=== PATIENT | female | born 1990 | race African-American/Black ===

== ENCOUNTER 2017-01-29 12:16 | Emergency (ER) | payer SELFPAY ==
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
--- NOTE | 2017-01-29 13:59 | DIAGNOSTIC IMAGING REPORT ---
PROCEDURE: XR CHEST 2 VIEW INDICATION: CHEST PAIN TECHNIQUE: PA and lateral view. COMPARISON: Chest x-ray 03/18/2014 FINDINGS: Lungs are clear. Cardiovascular structures are normal. Bony thorax is unremarkable. No significant interval change. IMPRESSION: 1. Negative chest.
--- NOTE | 2017-01-29 14:25 | ED ORDER SUMMARY ---
..... Patient: BRANNON BARNARD OrderSheet [facility] VisitID: [id number] [place] [address] 26y, F Registration Date/Time: 01/29/2017 ORDER SHEET Weight: 64.4 kg (stated) Allergies: No Known Drug Allergy GENERAL ORDERS: Soft Tissue Neck Urgent (13:27 01/29/2017 HBivens A.R.N.P.) (Ack 13:30 PWeiler ER Tech1) (13:51 PWeiler ER Tech1) Chest 2V Urgent (13:28 01/29/2017 HBivens A.R.N.P.) (Ack 13:30 PWeiler ER Tech1) (13:51 PWeiler ER Tech1) MEDICATION ORDERS: Toradol IM 60 mg (NOW) (14:25 01/29/2017 HBivens A.R.N.P.) (Ack 14:28 ASchmuck) (14:36 ASchmuck) IV FLUIDS: ORDER SHEET NOTES: [Electronically signed by Ana Hull (16:01/29/2017)] [Electronically signed by Albania Garcia A.R.N.P. (17:28 01/29/2017)] [Electronically locked/signed by Ana Hull (16:01/29/2017)]
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
--- NOTE | 2017-01-29 14:25 | ED ORDER SUMMARY ---
..... Patient: BRANNON BARNARD OrderSheet [facility] VisitID: [id number] [place] [address] 26y, F Registration Date/Time: 01/29/2017 ORDER SHEET Weight: 64.4 kg (stated) Allergies: No Known Drug Allergy GENERAL ORDERS: Soft Tissue Neck Urgent (13:27 01/29/2017 HBivens A.R.N.P.) (Ack 13:30 PWeiler ER Tech1) (13:51 PWeiler ER Tech1) Chest 2V Urgent (13:28 01/29/2017 HBivens A.R.N.P.) (Ack 13:30 PWeiler ER Tech1) (13:51 PWeiler ER Tech1) MEDICATION ORDERS: Toradol IM 60 mg (NOW) (14:25 01/29/2017 HBivens A.R.N.P.) (Ack 14:28 ASchmuck) (14:36 ASchmuck) IV FLUIDS: ORDER SHEET NOTES: [Electronically signed by Ana Hull (16:01/29/2017)] [Electronically signed by Albania Garcia A.R.N.P. (17:28 01/29/2017)] [Electronically locked/signed by Ana Hull (16:01/29/2017)]
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
--- NOTE | 2017-01-29 17:29 | ED MED RECONCILIATION SUMMARY ---
Patient: BRANNON BARNARD Medication Reconciliation Report [facility] VisitID: [id number] [place] [address] 26y, F Registration Date/Time: 01/29/2017 Weight: 64.4 kg Height/Length: 66 in. BMI: 22.9 ALLERGIES: No Known Drug Allergy The patient's Home Medications are listed below: NONE. The source(s) of the original Home Medication information: Not obtained. The following Medications were given to the patient in the Emergency Department: Toradol [IM] IM 60 mg, administered: 01/29/2017 2:35:00 PM The following Medications were prescribed to the patient: [place] 5 mg / 325 mg tablets: take 1 orally every 6 hours as needed for pain. Dispense five (5). No refill. -- Albania Garcia, Geoff.R.N.P. Motrin 800 mg tablets: take 1 tablet orally every 8 hours as needed for pain. Dispense thirty (30). No refills. Substitution is permissible. -- Albania Garcia A.R.N.P.
--- NOTE | 2017-01-29 17:29 | ED MAR SUMMARY ---
..... Medication Administration Record [facility] [address] [place] [address] Patient: BRANNON BARNARD Visit ID: [id number] 26y, F Weight: 64.4 kg Height/Length: 66 in BMI: 22.9 ALLERGIES: No Known Drug Allergy Given 14:35 01/29/2017 Ana Hull, Medication Administered: TORADOL [IM] (KETOROLAC TROMETHAMINE), Dose: 60 mg IM. Medication Ordered: Toradol IM 60 mg (NOW).
--- NOTE | 2017-01-29 17:29 | ED MAR SUMMARY ---
..... Medication Administration Record [facility] [address] [place] [address] Patient: BRANNON BARNARD Visit ID: [id number] 26y, F Weight: 64.4 kg Height/Length: 66 in BMI: 22.9 ALLERGIES: No Known Drug Allergy Given 14:35 01/29/2017 Ana Hull, Medication Administered: TORADOL [IM] (KETOROLAC TROMETHAMINE), Dose: 60 mg IM. Medication Ordered: Toradol IM 60 mg (NOW).
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
== END 2017-01-29 15:54 | disposition home or self-care (01) ==
LOC: ED SRH 12:16
DX: S16.1XXA Strain of muscle, fascia and tendon at neck level, initial encounter (principal); Y04.8XXA Assault by other bodily force, initial encounter; Y93.9 Activity, unspecified; Y92.9 Unspecified place or not applicable; Y99.9 Unspecified external cause status; F17.210 Nicotine dependence, cigarettes, uncomplicated